=== PATIENT | male | born 1960 | race Asian ===

== ENCOUNTER 2019-06-22 16:42 | Inpatient (IN) | payer BC ==
[~2019-06-22] VITALS: Ht 167.6 cm; Wt 74.6 kg
[2019-06-22] VITALS: BP 152/85
--- NOTE | 2019-06-22 17:03 | NUR ---
[facility] to ER, possible seizure event - unwitnessed syncope
[2019-06-22] MEDS ORDERED: LOSA100T31 PO (17:16)
[2019-06-22] MEDS ORDERED: NAPR-1009 PO (17:16)
[2019-06-22] MEDS ORDERED: GLIM4TAB2 PO (17:16)
[2019-06-22] MEDS ORDERED: METF-441 PO (17:16)
[2019-06-22] MEDS ORDERED: IV NS 0.9% 1,000 ML BAG IV ONE (17:30)
[2019-06-22 17:44] LABS: BASOPHILS # (AUTO) 0.1 /CMM (0.0-0.2); BASOPHILS % (AUTO) 1.1 % (0.0-2.0); EOSINOPHILS % (AUTO) 1.5 % (0.0-6.0); HEMATOCRIT 36 % (39-51); HEMOGLOBIN 12.6 g/dL (13.5-17.5); LYMPHOCYTES # (AUTO) 1.2 /CMM (0.8-4.8); LYMPHOCYTES % (AUTO) 22.5 % (20.0-44.0); MEAN CORPUSCULAR HGB CONC 35 g/dl (31.0-36.0); MEAN CORPUSCULAR VOLUME 87 fL (80-96); MONOCYTES # (AUTO) 0.4 /CMM (0.1-1.30); MONOCYTES % (AUTO) 7.6 % (2.0-12.0); NEUTROPHILS # (AUTO) 3.5 /CMM (1.8-8.9); NEUTROPHILS % (AUTO) 67.3 % (43.0-81.0); PLATELET COUNT (AUTO) 262 /CMM (150-450); RED BLOOD CELL COUNT(AUTO) 4.15 MIL/uL (4.5-6.0); WHITE BLOOD COUNT (AUTO) 5.2 K/uL (4.3-11.0)
[2019-06-22 17:50] LABS: CALCIUM, SERUM 8.8 mg/dL (8.5-10.1); CARBON DIOXIDE 25 mmol/L (21-32); CHLORIDE 110 mmol/L (98-107); CREATININE 0.7 mg/dL (0.6-1.3); GLUCOSE 123 mg/dL (74-106); POTASSIUM 3.6 mmol/L (3.5-5.1); SODIUM SERUM 145 mmol/L (136-145); UREA NITROGEN, BLOOD 16 mg/dL (7-18)
[2019-06-22 17:56] LABS: ALANINE AMINOTRANSFERASE 33 U/L (12-78); ALBUMIN 3.8 g/dL (3.4-5.0); ALKALINE PHOSPHATASE 60 U/L (46-116); ASPARTATE AMINOTRANSFERASE 18 U/L (15-37); BILIRUBIN,DIRECT 0.1 mg/dL (0.0-0.2); BILIRUBIN,TOTAL 0.4 mg/dL (0.2-1.0)
--- NOTE | 2019-06-22 21:01 | NUR ---
DR NICOLLE FRENCH
--- NOTE | 2019-06-22 21:18 | NUR ---
CALLED FOR TELE BED
[2019-06-22] MEDS ORDERED: IV NS 0.9% 1,000 ML IV PRN (21:25)
[2019-06-22] MEDS ORDERED: ONDANSETRON HCL/PF 4 MG/2 ML VIAL IVP PRN (21:30)
[2019-06-22] MEDS ORDERED: MAGNESIUM HYDROXIDE 30 ML UDC PO PRN (21:30)
[2019-06-22] MEDS ORDERED: Z GUARD REMEDY 2 OZ OINT TP PRN (21:30)
[2019-06-22] MEDS ORDERED: NAPROXEN 250 MG TABLET PO PRN (21:30)
[2019-06-22] MEDS ORDERED: MAG HYDROX/AL HYDROX/SIMETH 30 ML UDC PO PRN (21:30)
[2019-06-22] MEDS ORDERED: GLIMEPIRIDE 4 MG TABLET PO SCH (21:30)
[2019-06-22] MEDS ORDERED: ACETAMINOPHEN 325 MG TABLET PO PRN (21:30)
--- NOTE | 2019-06-22 21:48 | NUR ---
Patient is resting comfortably in bed with eyes closed. Easily aroused. VSS. FAMILY AT BEDSIDE.
--- NOTE | 2019-06-22 21:58 | NUR ---
PT ASSIGNED TO 316-1
--- NOTE | 2019-06-22 22:13 | NUR ---
REPORT GIVEN TO ELIZABETH CUNNINGHAM FOR JORGE A. BED CHANGED TO BED 321.
--- NOTE | 2019-06-22 23:20 | NUR ---
ELIZABETH OPEN NOTES RECEIVED PATIENT FROM ER VIA [facility] WITH FAMILY AT BEDSIDE. A/OX4. NO SIGNS OF DISTRESS OR DISCOMFORT. BREATHING EVEN AND UNLABORED. PATIENT STATES HE'S EXPERIENCING NECK SORENESS BUT STATES ITS TOLERABLE. IV ACCESS IN RAC, PATENT AND INTACT, NO SIGNS OF REDNESS OR INFILTRATION. ORIENTED PATIENT TO UNIT AND ROOM. NO SKIN ISSUES NOTED. BED IN LOW LOCKED POSITION WITH SIDE RAILS X2. SEIZURE PRECAUTIONS IN PLACE. CALL LIGHT WITHIN REACH. ADVISED PATIENT TO USE CALL LIGHT FOR ASSISTANCE. WILL CONTINUE TO MONITOR. Addendum: 06/23/19 at 0545 by KIRAN OSMAN RN PATIENT ATTACHED TO TELE MONITORING WITH SR 83 NOTED.
[2019-06-23] VITALS: BP 152/85
[2019-06-23 04:00] VITALS: BP 137/76
[2019-06-23 05:39] LABS: BASOPHILS % (AUTO) 0.7 % (0.0-2.0); EOSINOPHILS % (AUTO) 1.7 % (0.0-6.0); HEMATOCRIT 38 % (39-51); LYMPHOCYTES # (AUTO) 1.3 /CMM (0.8-4.8); LYMPHOCYTES % (AUTO) 18.9 % (20.0-44.0); MEAN CORPUSCULAR HGB CONC 34 g/dl (31.0-36.0); MEAN CORPUSCULAR VOLUME 86 fL (80-96); MONOCYTES # (AUTO) 0.5 /CMM (0.1-1.30); NEUTROPHILS # (AUTO) 4.8 /CMM (1.8-8.9); NEUTROPHILS % (AUTO) 70.7 % (43.0-81.0); PLATELET COUNT (AUTO) 260 /CMM (150-450); RED BLOOD CELL COUNT(AUTO) 4.43 MIL/uL (4.5-6.0); WHITE BLOOD COUNT (AUTO) 6.8 K/uL (4.3-11.0)
[2019-06-23 06:52] LABS: ALBUMIN 3.3 g/dL (3.4-5.0); BILIRUBIN,TOTAL 0.5 mg/dL (0.2-1.0); CALCIUM, SERUM 8.1 mg/dL (8.5-10.1); CREATININE 0.6 mg/dL (0.6-1.3); MAGNESIUM 1.9 mg/dL (1.8-2.4); PHOSPHORUS 3.2 mg/dL (2.5-4.9); POTASSIUM 3.3 mmol/L (3.5-5.1); TOTAL PROTEIN, SERUM 6.3 g/dL (6.4-8.2)
--- NOTE | 2019-06-23 07:08 | NUR ---
RN CLOSING NOTES PATIENT RESTING COMFORTABLY IN BED WITH FAMILY AT BEDSIDE. A/OX4. NO SIGNS OF DISTRESS OR DISCOMFORT. BREATHING EVEN AND UNLABORED. IV ACCESS IN RAC WITH NS INFUSING, PATENT AND INTACT, NO SIGNS OF REDNESS OR INFILTRATION. ALL NEEDS MET. NO SIGNIFICANT CHANGES THROUGH THE NIGHT. BED IN LOW LOCKED POSITION WITH SIDE RAILS X2. SEIZURE PRECAUTIONS IN PLACE. CALL LIGHT WITHIN REACH. ADVISED PATIENT TO USE CALL LIGHT FOR ASSISTANCE. WILL ENDORSE TO AM SHIFT FOR JORGE A.
--- NOTE | 2019-06-23 07:30 | NUR ---
[employer] SUPERVISOR NOTES PT IN BED, AWAKE, ALERT AND ORIENTED, NOT IN DISTRESS, DENIES PAIN, SON AT BEDSIDE, CALL LIGHT WITHIN REACH, IV FLUIDS INFUSING WELL, REMINDED PT TO CALL FOR ASSISTANCE IN GOING TO THE BATHROOM, NEEDS ATTENDED.
[2019-06-23 08:00] VITALS: BP 146/74
[2019-06-23 08:50] VITALS: BP 146/74
[2019-06-23] MEDS ORDERED: METFORMIN 850 MG TABLET PO SCH (09:00)
[2019-06-23] MEDS ORDERED: LOSARTAN POTASSIUM 50 MG TABLET PO SCH (09:00)
[2019-06-23] MEDS ORDERED: POTASSIUM CHLORIDE 20 MEQ TAB.PRT.SR PO SCH (11:00)
--- NOTE | 2019-06-23 11:50 | NUR ---
RN MS NOTES PT AWAKE, ALERT AND ORIENTED, NO COMPLAINT OF PAIN OR DIZZINESS, NOT IN DISTRESS, STATED HE IS FEELING OK NOW, ABLE TO WALK WITH STEADY GAIT IN THE ROOM, PT SEEN BY DR. FLEMING AND DR. RDAPER, DISCHARGE ORDER GIVEN, DISCHARGE AND MEDICATION INSTRUCTIONS PROVIDED TO PT AND BEATRICE MYERS, VERBALIZED UNDERSTANDING, BELONGINGS ACCOUNTED FOR, ASSISTED PT TO HOSPITAL LOBBY, LEFT IN STABLE CONDITION.
== END 2019-06-23 11:30 | disposition home or self-care (01) | DRG 90 ==
LOC: ER 16:44 → TELE1 22:42 → TELE 23:25 → MED 06-23 08:34
PROVIDERS: ADMIT Internal Medicine; ATTEND Internal Medicine
DX: S06.0X9A Concussion with loss of consciousness of unspecified duration, initial encounter (principal); D64.9 Anemia, unspecified; E11.9 Type 2 diabetes mellitus without complications; I10 Essential (primary) hypertension; E87.6 Hypokalemia; R40.2412 Glasgow coma scale score 13-15, at arrival to emergency department; W18.30XA Fall on same level, unspecified, initial encounter; Y92.481 Parking lot as the place of occurrence of the external cause; Z87.891 Personal history of nicotine dependence; S00.531A Contusion of lip, initial encounter
CPT/HCPCS: 36415; 70450-TC; 70486-TC; 71045-TC; 72125-TC; 80048-TC; 80053-TC; 80061-TC; 80076-TC; 82962-TC; 83605-TC; 83735-TC; 84100-TC; 84484-TC; 85025-TC; 85730-TC; 87040-TC; 87081-TC; 93307-TC; G0378; J7030